=== PATIENT | male | born 1995 | race Two or more races ===

== ENCOUNTER 2021-03-11 00:22 | Emergency (ER) | payer OTHER ==
[~2021-03-11] VITALS: Ht 157.5 cm; Wt 59.0 kg
== END 2021-03-11 13:53 | disposition home or self-care (01) ==
LOC: ER 00:22
DX: S01.81XA Laceration without foreign body of other part of head, initial encounter (principal); V29.9XXA Motorcycle rider (driver) (passenger) injured in unspecified traffic accident, initial encounter; Y93.89 Activity, other specified; Y92.410 Unspecified street and highway as the place of occurrence of the external cause